=== PATIENT | female | born 1995 | race Caucasian/White ===

== ENCOUNTER 2025-02-11 20:26 | Emergency (ER) | payer OTHER ==
[~2025-02-11] VITALS: Ht 152.4 cm; Wt 86.4 kg
[2025-02-11 20:37] VITALS: TEMP 98.2
[2025-02-11] MEDS ORDERED: IBUP-1492 PO (21:44)
[2025-02-11] MEDS ORDERED: ACET-3385 PO (21:44)
[2025-02-11] MEDS ORDERED: AMOX-457 PO (21:44)
[2025-02-11 22:00] VITALS: BP 122/77; PULSE 77; RESP 16; O2SAT 99
[2025-02-11] MEDS: ACETAMINOPHEN 500 MG TABLET PO ONE (22:33)
[2025-02-11] MEDS: AMOX TR/POT CLAV 875 MG/125 MG TABLET PO ONE (22:33)
== END 2025-02-11 22:40 | disposition home or self-care (01) ==
LOC: EMS 20:26
DX: K02.9 Dental caries, unspecified (principal); K08.89 Other specified disorders of teeth and supporting structures; Z90.49 Acquired absence of other specified parts of digestive tract
CPT/HCPCS: 99283